=== PATIENT | female | born 1950 | race Caucasian/White ===

== ENCOUNTER 2018-01-04 13:24 | Emergency (ER) | payer MEDICARE, MEDICAID ==
[2018-01-04 14:19] LABS: ADD MAN DIFF? NO
[2018-01-04 14:23] LABS: ABNORMAL IP MESSAGE 1; BASOPHILS % 0.2 % (0.0-2.0); HEMATOCRIT 31.8 % (37.0-47.0); HEMOGLOBIN 9.8 g/dl (12.0-16.0); LYMPHOCYTES # 0.3 10^3/ul (0.8-2.9); LYMPHOCYTES % 6.2 % (15.0-51.0); MEAN CORPUSCULAR HEMOGLOBIN 20.7 pg (29.0-33.0); MEAN CORPUSCULAR HGB CONC 30.8 g/dl (32.0-37.0); MEAN CORPUSCULAR VOLUME 67.1 fl (82.0-101.0); MEAN PLATELET VOLUME 9.3 fl (7.4-10.4); MONOCYTE # 0.5 10^3/ul (0.3-0.9); MONOCYTES % 12.4 % (0.0-11.0); NEUTROPHIL # 3.5 10^3/ul (1.6-7.5); NEUTROPHILS % 80.7 % (39.0-77.0); PLATELET COUNT 181 10^3/UL (140-415); RED BLOOD COUNT 4.74 10^6/ul (4.20-5.40); RED CELL DISTRIBUTION WIDTH 17.3 % (11.5-14.5)
[2018-01-04 14:23] LABS: WHITE BLOOD COUNT 4.4 10^3/ul (4.8-10.8)
[2018-01-04 14:41] LABS: ALANINE AMINOTRANSFERASE 24 IU/L (13-69); ALBUMIN 4.6 g/dl (3.3-4.9); ALBUMIN/GLOBULIN RATIO 1.17; ALKALINE PHOSPHATASE 98 IU/L (42-121); ANION GAP 22 (8-16); ASPARTATE AMINO TRANSFERASE 19 IU/L (15-46); BILIRUBIN,INDIRECT 0.3 mg/dl (0-1.1); BILIRUBIN,TOTAL 0.3 mg/dl (0.2-1.3); BLOOD UREA NITROGEN 11 mg/dl (7-20); CALCIUM 9.1 mg/dl (8.4-10.2); CARBON DIOXIDE 27 mmol/L (21-31); CHLORIDE 102 mmol/L (97-110); CREATININE 0.73 mg/dl (0.44-1.00); GLUCOSE 118 mg/dl (70-220); LIPASE 65 U/L (23-300); POTASSIUM 4.1 mmol/L (3.5-5.1); SODIUM 147 mmol/L (135-144); TOTAL PROTEIN 8.5 g/dl (6.1-8.1)
[2018-01-04 14:43] LABS: POSITIVE DIFF @See below
[2018-01-04] MEDS: LEVALBUTEROL (NEB) 1.25 MG/0.5 ML AMP HHN (14:48)
[2018-01-04] MEDS: IPRATROPIUM (NEB) 0.5 MG/2.5 ML AMP HHN (14:48)
[2018-01-04 16:05] LABS: URINE PH (Dip) POC 6.5 (5.0-8.5)
[2018-01-04 16:05] LABS: URINE BLOOD (Dip) POC Trace-intact (NEGATIVE); URINE GLUCOSE (Dip) POC Negative (NEGATIVE); URINE KETONES (Dip) POC 1+ (NEGATIVE); URINE LEUKOCYTE EST (Dip) POC Negative (NEGATIVE); URINE NITRITE (Dip) POC Negative (NEGATIVE); URINE TOTAL PROTEIN POC 3+ (NEGATIVE)
[2018-01-04] MEDS: SOD CHLORIDE 0.9% 500 ML IV (16:12)
[2018-01-04] MEDS: LEVALBUTEROL (NEB) 1.25 MG/0.5 ML AMP INH (16:36)
[2018-01-04] MEDS: IPRATROPIUM (NEB) 0.5 MG/2.5 ML AMP NEB (16:36)
[2018-01-04] MEDS: ONDANSETRON 4 MG INJ IV ×2 (16:39→17:37)
[2018-01-04] MEDS: KETOROLAC 15 MG INJ IV (16:39)
[2018-01-04] MEDS: LEVOFLOXACIN 750 MG TABLET PO (17:08)
== END 2018-01-04 17:42 | disposition home or self-care (01) ==
LOC: E/R 13:24
DX: J20.9 Acute bronchitis, unspecified (principal); K80.20 Calculus of gallbladder without cholecystitis without obstruction; D64.9 Anemia, unspecified; E03.9 Hypothyroidism, unspecified; R06.2 Wheezing
CPT/HCPCS: 36415; 71045; 76705; 80053; 81003; 83690; 85025; 93005; 94640; 94664; 96374; 96375; 99285-25